=== PATIENT | female | born 2000 | race Caucasian/White ===

== ENCOUNTER 2022-01-03 23:51 | Emergency (ER) | payer BC, SELFPAY ==
[2022-01-04 00:03] VITALS: BP 136/63; PULSE 71; RESP 18; TEMP 36.4; O2SAT 99; BMI 27.4
--- NOTE | 2022-01-04 00:12 | ED_ITS ---
HPI - Psych General Chief Complaint: Psychiatric Symptoms Stated Complaint: Sec 12 Time Seen by Provider: 01/04/22 00:06 Source: patient and EMS Mode of arrival: EMS Limitations: no limitations History of Present Illness HPI Narrative: Patient comes to emergency room via EMS from [facility]. Patient states that she has had suicidal ideation, has been off medications for about a year. Patient wants to cut herself with a [place] Army knife. Patient has no injuries. Patient denies using drugs or alcohol. MD complaint: suicidal ideation Related Data Home Medications Medication Instructions Recorded Confirmed bupropion HCl 300 mg 24 hr tablet, 1 tab PO DAILY 01/04/22 01/04/22 extended release lamotrigine 25 mg tablet 1 tab PO DAILY 01/04/22 01/04/22 melatonin 3 mg tablet 1 tab PO BEDTIME 01/04/22 01/04/22 Allergies Allergy/AdvReac Type Severity Reaction Status Date / Time gluten Allergy Unknown Unknown Verified 01/04/22 00:12 Review of Systems Review of Systems: Constitutional : No Weight loss, No Fever, No Chills, No Night Sweats, No Fatigue, No Malaise ENT/Mouth : No Hearing loss, No Ear Pain, No Nasal Congestion, No Sinus Pain, No Hoarseness, No sore throat, No Rhinorrhea, No Swallowing Difficulty Eyes: No Eye Pain, No Swelling, No Redness, No Foreign Body, No Discharge, No Vision Changes Cardiovascular : No Chest Pain, No SOB, No Dyspnea on Exertion, No Orthopnea, No Edema, No Palpitations Respiratory : No Cough, No Sputum, No Wheezing, No Smoke Exposure, No Dyspnea Gastrointestinal : No Nausea, No Vomiting, No Diarrhea, No Constipation, No abdominal Pain, No Hematochezia, No Melena Genitourinary : no irregular bleeding, No Dysuria, No Urinary Frequency, No Hematuria, No Urinary Incontinence, No Urgency, No Flank Pain, No Urinary Flow Changes, No Hesitancy Musculoskeletal : No joint pain, No Myalgias, No Joint Swelling Skin : No Skin Lesions, No rash Neuro : No Weakness, No Numbness, No Paresthesias, No Loss of Consciousness, No Dizziness, No Headache Psych : No Anxiety/Panic, complaining of depression and suicidal ideation, no homicidal ideation Heme/Lymph: No Bruising, No Bleeding,No Lymphadenopathy Endocrine : No Polyuria, No Polydipsia, No Temperature Intolerance [facility] Past Medical History Medical History (Updated 01/04/22 @ 06:10 by Ankita Patterson MD) MDD (major depressive disorder) Social History Social History Advance Directives: No Advance Directives Information Provided: Yes Guardian: No Physical Exam Vital Signs: Vital Signs: Last Vital Signs Temp 97.6 F 01/04/22 00:03 Pulse 71 01/04/22 00:03 Resp 18 01/04/22 00:03 BP 136/63 01/04/22 00:03 Pulse Ox 99 01/04/22 00:03 O2 Del Method 01/04/22 00:03 BMI result Body Mass Index 27.4 Const: Other: Appearance: Alert. Oriented X3. No acute distress. Eyes: Pupils equal, round and reactive to light. ENT: Pharynx normal. Neck: Normal inspection. Neck supple. No lymph nodes noted. No crepitus CVS: Normal heart rate and rhythm. Pulses normal. Normal S1 and S2 Respiratory: No respiratory distress. Breath sounds normal. No Wheezing. No rales Abdomen: Soft and nontender. No rigidity. No distention. Skin: Skin warm and dry. Normal skin color. Normal skin turgor. Extremities: No lower extremity edema. No Lacerations. No Rash Neuro: Oriented X 3. No motor deficit. No sensory deficit. Moving all extremities. No slurred speech. CN 2 through 12 grossly intact Psych: calm, cooperative, normal affect Course Course Course Narrative: Patient came on a Section 12. Care team consult pending. Physician observation started at 00:15 6 a.m.: Patient was seen by the care team, patient will be discharged today after the care team speaks to the patient's counselor at the [facility] and have a follow-up plan ready to go. Overnight, no events, vitals stable. U tox negative. MDM - Psych Lab Data Labs: Lab Results 01/04/22 01/04/22 01/04/22 Range/Units 00:21 00:21 00:21 Urine Color Yellow Urine Appearance Clear Urine pH 6.5 (5.0-8.0) Ur Specific [place] <= 1.005 (1.005-1.025) Urine Protein Negative (Neg-Trace) mg/dL Urine Glucose (UA) Negative (Negative) mg/dL Urine Ketones Trace (Negative) mg/dL Urine Blood Small (1+) H (Negative) Urine Nitrite Negative (Negative) Ur Leukocyte Esterase Negative (Negative) Urine RBC 0-2 (0-2) /HPF Urine WBC 0-5 (0-5) /HPF Ur Squamous Epith Cells 0-2 (0-2) /HPF Urine Bacteria None Seen (None Seen) Hyaline Casts 0-2 (0-2) /LPF Urine Test NEGATIVE (NEGATIVE) Urine Opiates Screen Not Detected (Not Detect) Urine Fentanyl Screen Not Detected (Not Detect) Ur Barbiturates Screen Not Detected (Not Detect) Ur Phencyclidine Scrn Not Detected (Not Detect) Ur Amphetamines Screen Not Detected (Not Detect) U Benzodiazepines Scrn Not Detected (Not Detect) Urine Cocaine Screen Not Detected (Not Detect) U Marijuana (THC) Screen Not Detected (Not Detect) COVID-19 (ELIZA) (Negative) COVID-[employer] 01/04/22 Range/Units 00:24 Urine Color Urine Appearance Urine pH (5.0-8.0) Ur Specific [place] (1.005-1.025) Urine Protein (Neg-Trace) mg/dL Urine Glucose (UA) (Negative) mg/dL Urine Ketones (Negative) mg/dL Urine Blood (Negative) Urine Nitrite (Negative) Ur Leukocyte Esterase (Negative) Urine RBC (0-2) /HPF Urine WBC (0-5) /HPF Ur Squamous Epith Cells (0-2) /HPF Urine Bacteria (None Seen) Hyaline Casts (0-2) /LPF Urine Test (NEGATIVE) Urine Opiates Screen (Not Detect) Urine Fentanyl Screen (Not Detect) Ur Barbiturates Screen (Not Detect) Ur Phencyclidine Scrn (Not Detect) Ur Amphetamines Screen (Not Detect) U Benzodiazepines Scrn (Not Detect) Urine Cocaine Screen (Not Detect) U Marijuana (THC) Screen (Not Detect) COVID-19 (ELIZA) Negative (Negative) COVID-19 Clin [facility] See Note Discharge Plan Discharge Clinical Impression: Depression Patient Disposition: Still a Patient Prescriptions: No Action melatonin 3 mg tablet 1 tab PO BEDTIME lamotrigine 25 mg tablet 1 tab PO DAILY bupropion HCl 300 mg tablet extended release 24 hr 1 tab PO DAILY
[2022-01-04 00:29] LABS: Appearance Urine Clear; Color Urine Yellow; Glucose Urine UA Negative (Negative); Leukocyte Esterase Urine Negative (Negative); Nitrite Urine Negative (Negative); PH 6.5 (5.0-8.0); Specific Gravity - Urine <= 1.005 (1.005-1.025); Urine Blood Small (1+) (Negative); Urine Ketones Trace mg/dL (Negative); Urine Protein Negative (Neg-Trace)
[2022-01-04 00:33] LABS: UPreg QC Valid YES; Urine Pregnancy NEGATIVE (NEGATIVE)
[2022-01-04 00:37] LABS: Bacteria Urine None Seen (None Seen); Hyaline Casts Urine 0-2 /LPF (0-2); RBC Urine 0-2 /HPF (0-2); Squamous Epithelial Cell Urine 0-2 /HPF (0-2); WBC Urine 0-5 /HPF (0-5)
[2022-01-04 00:53] LABS: Amphetamine Screen Urine Not Detected (Not Detect); Barbiturates, Urine Not Detected (Not Detect); Benzodiazepines Screen Urine Not Detected (Not Detect); Cannabinoid Screen Urine Not Detected (Not Detect); Cocaine Screen Urine Not Detected (Not Detect); Fentanyl, urine Not Detected (Not Detect); Opiate Screen Urine Not Detected (Not Detect); Phencyclidine Screen Urine Not Detected (Not Detect)
[2022-01-04 00:58] LABS: COVID-19 Test Negative (Negative)
--- NOTE | 2022-01-04 07:16 | PC.NURSE ---
Patient slept through the night, no distress observed/reported, patient was assessed by care team, disposition discharge back to college in the morning, care team after speaking with [facility] counsellor will coordinate discharge, med rec completed/pending provider's approval, behavior pleasant, will continue to monitor.
--- NOTE | 2022-01-04 07:30 | PC.NURSE ---
patient appears to remain asleep at present respirations are even and unlabored patient appears in no distress.
[2022-01-04] MEDS: Ibuprofen 600 MG TABLET PO (08:33)
--- NOTE | 2022-01-04 10:26 | MHC.CARE ---
CARE Team Safety plans with pt after discussing the discharge plan with [facility]. STEP 1:? WARNING SIGNS: 1.?Thinking in circles? 2.? Loses focus? STEP 2:? INTERNAL COPING STRATEGIES-THINGS I CAN DO TO TAKE MY MIND OFF MY PROBLEMS WITHOUT CONTACTING ANOTHER PERSON: 1.? Santa is encouraged to explore the [facility] sessions that are beginning in January. 2.? Santa believes they have a sufficient amount of support from the campus counseling center in the form of weekly therapy meetings.? It was discussed with and agreed upon that Santa will seek out additional weekly therapy meetings should they believe they require any additional support during the week. 3.? You have a 2:30, in person meeting with [facility] today 01/04/22 when you return to campus. STEP 3:? PEOPLE AND SOCIAL SETTINGS THAT PROVIDE DISTRACTION: 1.? Place:??? Santa?s dorm is a distraction, they describe this as a social setting.? Engagement with peers in this setting may provide distraction from the stressor(s)? 2.? Place:??? Santa reports that they spend a great deal of time in social settings that provide distraction, spending time in such settings with friends and activities may provide distraction from the stressor(s)? 3.? Name:? Santa reports that they enjoy drawing, writing and watching Formula 1 racing.? Drawing or writing about the stressor(s) may have a positive benefit.? Try drawing or writing about the stressor(s) and once complete, crumple them up and toss them away. ?Imagine the stressor(s) ?as trapped in the paper, in the words and or the image, When you throw the crumpled paper away, imagine that those stressors trapped in the paper are being thrown away as well.? STEP 4:? PEOPLE WHOM I CAN ASK FOR HELP DURING A CRISIS: 1.? Name:? Santa said they can seek out her friend?s group for support? 2.? Name:? [facility]? Contact: ? 3.? Name:? Santa stated that their employer at the [employer] on campus is supportive.? They feel comfortable seeking this person out for support during crisis. 4.? Santa is encouraged to reach out to the below agencies if these supports are not effective or if there is a worsening crisis.? STEP 5:? PROFESSIONAL OR AGENCIES I CAN CONTACT DURING A CRISIS 1.??? Clinician/Agency Name:? [facility] Crisis- [phone], [place], [place] Emergency Contact:? 2.??? Clinician/Agency Name:? [facility] Crisis- [phone], [address], [place] Emergency Contact:? 3.??? Clinician/Agency Name:? [facility] Crisis- [phone], [place] Emergency Contact:? [facility] ED, [address] [facility]. [address]. [phone] Suicide Prevention Lifeline Phone: [phone] STEP 6:? MAKING THE NVIRONMENT SAFER (PLAN FOR LETHAL MEANS SAFETY): Options for interventions were discussed with Santa .? Santa stated that she could contact [facility], a friend or friend?s group, or they could call crisis again as a means to stay safe when they felt unsafe. CARE Team will secure transportation back to campus. [facility] is aware. Copies of this safety plan was provided to pt with an additional copy for [facility].
[2022-01-04 10:41] VITALS: BP 122/58; PULSE 70; RESP 18; TEMP 36.8; O2SAT 98
== END 2022-01-04 11:11 | disposition home or self-care (01) ==
PROVIDERS: Emergency Provider Emergency Medicine
DX: F33.1 Major depressive disorder, recurrent, moderate (principal); R45.851 Suicidal ideations; Z20.822 Contact with and (suspected) exposure to COVID-19; Z79.899 Other long term (current) drug therapy
CPT/HCPCS: 80307; 81001; 81025; 87635; 99284